=== PATIENT | male | born 1950 ===

== ENCOUNTER → 2018-06-26 | Outpatient (CLI) | payer OTHER | END | disposition home or self-care (01) | LOC: RAD 11:22 | DX: S29.8XXA Other specified injuries of thorax, initial encounter (principal) ==

== ENCOUNTER 2018-11-29 13:24 | Outpatient (CLI) | payer OTHER | END 2018-11-29 17:10 | disposition home or self-care (01) | LOC: SONOGRAMA 13:24 | DX: R10.9 Unspecified abdominal pain (principal) ==

== ENCOUNTER 2019-04-20 00:26 | Emergency (ER) | payer OTHER ==
[~2019-04-20] VITALS: Ht 190.5 cm; Wt 106.6 kg
[2019-04-20] MEDS ORDERED: VERAPAMIL ER300 MG (01:05)
[2019-04-20] MEDS ORDERED: SYNTHROID137 MCG (01:05)
[2019-04-20] MEDS ORDERED: AVAPRO300 MG (01:05)
[2019-04-20] MEDS ORDERED: XANAX0.25 MG PO (02:20)
== END 2019-04-20 02:35 | disposition home or self-care (01) ==
LOC: ER 00:26
DX: R51 Headache (principal); F41.8 Other specified anxiety disorders

== ENCOUNTER → 2019-08-16 | Outpatient (CLI) | payer OTHER ==
[~2019-08-16] MED LIST: AVAPRO300 MG; SYNTHROID137 MCG; VERAPAMIL ER300 MG; XANAX0.25 MG PO
== END | disposition home or self-care (01) ==
LOC: RAD 10:55
DX: M54.5 Low back pain (principal); C73 Malignant neoplasm of thyroid gland

== ENCOUNTER 2019-08-23 11:55 | Outpatient (CLI) | payer OTHER | END 2019-08-23 15:00 | disposition home or self-care (01) | LOC: SONOGRAMA 11:55 | DX: R22.41 Localized swelling, mass and lump, right lower limb (principal) ==

== ENCOUNTER 2019-08-27 15:12 | Outpatient (CLI) | payer OTHER | END 2019-08-27 16:00 | disposition home or self-care (01) | LOC: TOM 15:12 | DX: M48.062 Spinal stenosis, lumbar region with neurogenic claudication (principal) ==

== ENCOUNTER → 2020-07-01 | Outpatient (CLI) | payer OTHER | END | disposition home or self-care (01) | LOC: SONOGRAMA 10:23 | PROVIDERS: ATTEND Radiology Diagnostic Radiology | DX: Q61.02 Congenital multiple renal cysts (principal) ==

== ENCOUNTER → 2020-09-05 | Outpatient (CLI) | payer OTHER | END | disposition home or self-care (01) | LOC: MAMO-SONO 13:15 → SONOGRAMA 13:22 | PROVIDERS: ATTEND Internal Medicine Sports Medicine | DX: C73 Malignant neoplasm of thyroid gland (principal) ==

== ENCOUNTER 2021-10-06 12:06 | Outpatient (CLI) | payer OTHER | END 2021-10-06 12:20 | disposition home or self-care (01) | LOC: RAD 12:06 | PROVIDERS: ATTEND Radiology Diagnostic Radiology | DX: M54.50 Low back pain, unspecified (principal); M25.552 Pain in left hip | CPT/HCPCS: 72148 ==

== ENCOUNTER 2022-05-03 10:57 | Outpatient (CLI) | payer OTHER | END 2022-05-05 15:29 | disposition home or self-care (01) | LOC: RAD 10:57 | PROVIDERS: ATTEND Internal Medicine Cardiovascular Disease | DX: C73 Malignant neoplasm of thyroid gland (principal); E89.0 Postprocedural hypothyroidism; I11.9 Hypertensive heart disease without heart failure; I70.0 Atherosclerosis of aorta; I25.2 Old myocardial infarction; M54.2 Cervicalgia ==

== ENCOUNTER 2023-07-27 10:56 | Outpatient (CLI) | payer OTHER | END 2023-07-27 10:57 | disposition home or self-care (01) | LOC: SONOGRAMA 10:56 | PROVIDERS: ATTEND Internal Medicine Gastroenterology | DX: R10.9 Unspecified abdominal pain (principal) ==

== ENCOUNTER 2024-08-29 10:58 | Outpatient (CLI) | payer OTHER | END 2024-08-29 13:20 | disposition home or self-care (01) | LOC: RAD 10:58 | PROVIDERS: ATTEND Radiology Diagnostic Radiology | DX: M25.572 Pain in left ankle and joints of left foot (principal); M25.571 Pain in right ankle and joints of right foot; M79.672 Pain in left foot; M79.671 Pain in right foot ==

== ENCOUNTER 2024-09-06 11:48 | Outpatient (CLI) | payer OTHER | END 2024-09-06 12:00 | disposition home or self-care (01) | LOC: MRI 11:48 → SONOGRAMA 11:48 → MRI 12:00 | PROVIDERS: ATTEND Radiology Diagnostic Radiology | DX: M25.571 Pain in right ankle and joints of right foot (principal) | CPT/HCPCS: 73720; Q9965; 73721 ==

== ENCOUNTER → 2024-09-14 | Outpatient (CLI) | payer OTHER | END | disposition home or self-care (01) | LOC: TOM 10:15 | DX: M24.271 Disorder of ligament, right ankle (principal) ==

== ENCOUNTER 2024-10-26 13:01 | Outpatient (CLI) | payer OTHER | END 2024-10-26 13:10 | disposition home or self-care (01) | LOC: MRI 13:01 | DX: R41.3 Other amnesia (principal); I07.9 Rheumatic tricuspid valve disease, unspecified | CPT/HCPCS: 70551 ==

== ENCOUNTER → 2024-12-25 | Outpatient (CLI) | payer OTHER | END | disposition home or self-care (01) | LOC: MRI 11:23 | DX: N50.9 Disorder of male genital organs, unspecified (principal) | CPT/HCPCS: 72141; 72148 ==

== ENCOUNTER 2025-03-15 12:15 | Outpatient (CLI) | payer OTHER | END 2025-03-15 12:30 | disposition home or self-care (01) | LOC: TOM 12:15 | DX: M48.19 Ankylosing hyperostosis [Forestier], multiple sites in spine (principal) ==